=== PATIENT | female | born 2000 | race Hispanic/Latino ===

== ENCOUNTER 2024-12-06 15:34 | Inpatient (IN) | payer MEDICAID, SELFPAY ==
[2024-12-06 16:04] VITALS: BMI 31.1
[2024-12-06] MEDS ORDERED: Tranexamic Acid 1,000 MG/10 ML VIAL IVP PRN (16:32)
[2024-12-06] MEDS ORDERED: Lidocaine 1% (PF) 30 ML VIAL SC PRN (16:32)
[2024-12-06] MEDS ORDERED: Carboprost 250 MCG/ML AMP IM PRN (16:32)
[2024-12-06] MEDS ORDERED: Ondansetron PF 4 MG/2 ML Vial IVP PRN ×2 (16:32→19:46)
[2024-12-06] MEDS ORDERED: Methylergonovine 0.2 MG/ML VIAL IM PRN (16:32)
[2024-12-06] MEDS ORDERED: hydrALAZINE 20 MG/ML VIAL SLOW IVP PRN (16:32)
[2024-12-06] MEDS ORDERED: Acetaminophen 500 MG TAB PO PRN (16:32)
[2024-12-06] MEDS ORDERED: Diphenoxylate HCl/Atropine Tablet PO PRN ×2 (16:32)
[2024-12-06] MEDS ORDERED: Oxytocin 30 units/NS 500 ML 500 ML IV SCH ×2 (16:45)
[2024-12-06 16:59] LABS: Hematocrit 38.2 % (34.9-44.5); Hemoglobin 12.7 g/dL (12.0-15.5); Mean Corpuscular Hemoglobin 28.7 pg (27.0-33.0); Mean Corpuscular Volume 86.2 fL (81.6-98.3); Platelet Count 301 10x3/uL (150-450); Red Blood Cell (RBC) Count 4.43 10x6/uL (3.90-5.03); White Blood Cell (WBC) Count 10.14 10x3/uL (3.5-10.5)
[2024-12-06 17:33] LABS: Syphilis Antibody Index 0.07 S/CO (<1.00 Non-Reactive)
[2024-12-06 17:35] LABS: HIV (1/2) Antibody/Antigen Non-Reactive (NonReactive); HIV 1/2 INDEX 0.09 S/CO (<1.00); Hep B Surf Ag - L&D Non-Reactive S/CO (NonReactive)
[2024-12-06] MEDS: Penicillin G Potassium 5 MILL.UNITS in Sodium Chloride 0.9% 100 ML IVPB SCH (17:46)
[2024-12-06] MEDS: Oxytocin 30 units/NS 500 ML 500 ML IV SCH (19:08)
[2024-12-06] MEDS: fentaNYL/Ropivacaine Epidural 100 ML ONE (19:35)
[2024-12-06] MEDS ORDERED: Acetaminophen 325 MG TAB PO PRN (19:46)
[2024-12-06] MEDS ORDERED: diphenhydrAMINE 50 MG/ML VIAL IVP PRN (19:46)
[2024-12-06] MEDS ORDERED: fentaNYL 2 mcg/Ropivacaine 0.2% Epidural 100 ML CADD EPIDURAL SCH (20:00)
[2024-12-06] MEDS ORDERED: Communication Order-Pharmacy FS SCH (20:00)
[2024-12-06] MEDS: Penicillin G 2.5 MILL.units 2.5 MILL.UNITS in Premix 1 BAG IVPB SCH (21:47)
[2024-12-07] MEDS ORDERED: Hepatitis B Vaccine 10 MCG/0.5 ML SYR ONE (00:51)
[2024-12-07] MEDS ORDERED: Milk Of Magnesia 30 ML UDCUP PO PRN (00:58)
[2024-12-07] MEDS ORDERED: Ondansetron PF 4 MG/2 ML Vial IVP PRN (00:58)
[2024-12-07] MEDS ORDERED: Bisacodyl 10 MG SUPP PR PRN (00:58)
[2024-12-07] MEDS ORDERED: diphenhydrAMINE 25 MG CAP PO PRN (00:58)
[2024-12-07] MEDS ORDERED: Benzocaine-Menthol 82.5 ML CAN TOP PRN (00:58)
[2024-12-07] MEDS ORDERED: hydrALAZINE 20 MG/ML VIAL SLOW IVP PRN (00:58)
[2024-12-07] MEDS ORDERED: Boostrix 0.5 ML (Tdap) VIAL (>/=7 yrs of age) IM ONE (02:00)
[2024-12-07] MEDS: Ibuprofen 800 MG TAB PO SCH ×2 (04:17→14:03)
[2024-12-07] MEDS ORDERED: Ibuprofen 800 MG TAB PO SCH (06:00)
[2024-12-07] MEDS: Ferrous Sulfate 325 MG TAB PO SCH (07:04)
[2024-12-07] MEDS: Erythromycin Base 0.5% Oint 1 GM TUBE ONE (07:50)
[2024-12-07] MEDS: HYDROcodone/Acetaminophen 5/325 mg Tablet PO PRN (14:04)
[2024-12-07] MEDS: Simethicone Chewable 80 MG TAB PO PRN (19:06)
[2024-12-08 08:34] VITALS: BP 102/61; TEMP 98
== END 2024-12-08 17:00 | disposition home or self-care (01) | DRG 807 ==
LOC: CSHLD/OP 15:34 → CSHLD 16:31 → CSHPP 12-07 02:18
PROVIDERS: ADMIT Family Medicine; ATTEND Family Medicine
PROC: 10E0XZZ Delivery of Products of Conception, External Approach (ICD-10-PCS; principal; 2024-12-06)
PROC: 10907ZC Drainage of Amniotic Fluid, Therapeutic from Products of Conception, Via Natural or Artificial Opening (ICD-10-PCS; 2024-12-06)
DX: O99.824 Streptococcus B carrier state complicating childbirth (principal); Z37.0 Single live birth; Z3A.39 39 weeks gestation of pregnancy
CPT/HCPCS: 51702; 85027; 86780; 86850; 86900; 86901; 87340; 87389; 99285; J2540; J2590; J7120